=== PATIENT | female | born 1960 | race Caucasian/White ===

== ENCOUNTER → 2023-08-01 06:30 | Day surgery (SDC) | payer BC, SELFPAY | LOC: GI 06:30 | PROVIDERS: ATTENDING PHYSICIAN Internal Medicine Gastroenterology; FAMILY PHYSICIAN Nurse Practitioner Family | DX: Z12.11 Encounter for screening for malignant neoplasm of colon (principal); Z86.010 Personal history of colon polyps; Z83.719 Family history of colon polyps, unspecified; K57.30 Diverticulosis of large intestine without perforation or abscess without bleeding; K64.8 Other hemorrhoids; K62.1 Rectal polyp; D12.0 Benign neoplasm of cecum | CPT/HCPCS: 45385; 88305 ==

== ENCOUNTER → 2023-11-29 15:28 | Outpatient (REF) | payer BC, SELFPAY | LOC: RCS 15:28 | PROVIDERS: ATTENDING PHYSICIAN Internal Medicine Interventional Cardiology; FAMILY PHYSICIAN Nurse Practitioner Family | DX: I10 Essential (primary) hypertension (principal) | CPT/HCPCS: 93306 ==